=== PATIENT | male | born 1975 | race Caucasian/White ===

== ENCOUNTER 2017-03-26 03:33 | Emergency (ER) | payer OTHER ==
[~2017-03-26] VITALS: Ht 175.3 cm; Wt 113.6 kg
[2017-03-26] MEDS ORDERED: PERCOCET 5/31 TABLET PO (07:22)
[2017-03-26 07:38] VITALS: BP 133/78
== END 2017-03-26 07:39 | disposition home or self-care (01) ==
LOC: EME 03:33
DX: M54.41 Lumbago with sciatica, right side (principal)
CPT/HCPCS: 72100; 99281; 99284; J1885; J2270

== ENCOUNTER 2017-04-28 23:06 | Emergency (ER) | payer OTHER ==
[~2017-04-28] VITALS: Ht 177.8 cm; Wt 107.7 kg
[~2017-04-28 23:06] MED LIST: PERCOCET 5/31 TABLET PO
[2017-04-29] MEDS ORDERED: AUGMENTIN875 MG PO (00:20)
[2017-04-29 00:37] VITALS: BP 125/90
== END 2017-04-29 01:11 | disposition home or self-care (01) ==
LOC: EME 23:06
DX: S61.452A Open bite of left hand, initial encounter (principal); W54.0XXA Bitten by dog, initial encounter; F17.200 Nicotine dependence, unspecified, uncomplicated
CPT/HCPCS: 73130; 99281; 99283